=== PATIENT | male | born 1945 | race Caucasian/White ===

== ENCOUNTER 2019-01-20 05:10 | Day surgery (SDC) ==
[2019-01-13 09:54] LABS: HEMATOCRIT 39.4 % (42.0-52.0); HEMOGLOBIN 13.7 g/dL (14.0-18.0); MCH 30.7 PG (27-31); MCHC 34.8 g/dL (33-37); MCV 88.3 FL (81-99); MPV 11.1 FL (7.4-10.4); RBC 4.46 XMIL (4.7-6.1); RDW 13.8 % (11.5-14.5); WBC 5.95 X1000 (4.8-10.8)
[2019-01-13 10:05] LABS: INR 1.03; PROTIME 13.6 Seconds (11.0-16.0)
[2019-01-13 10:08] LABS: PTT 29.4 Seconds (22.3-41.8)
[2019-01-13 10:31] LABS: AGAP 11; BUN 18 mg/dL (8-22); CALCIUM 9.2 mg/dL (8.8-10.2); CHLORIDE 104 mmol/L (98-107); COSMO 287; ESTIMATED GFR > 60; GLUCOSE 95 mg/dL (70-104); POTASSIUM 4.3 mmol/L (3.5-5.1); SODIUM 143 mmol/L (136-145); TCO2 28 mmol/L (25-35)
--- NOTE | 2019-01-19 17:55 | HISTORY AND PHYSICAL ---
HISTORY OF PRESENT ILLNESS: A 73-year-old male with elevated PSA and clinical stage T1c Rosalina 6 prostate adenocarcinoma. His PSA was up to 3.83. He underwent prostate biopsy on 11/25/2018. Volume was 30 cubic cm. Unfortunately, pathology revealed [place] 6 prostate adenocarcinoma in 2/12 cores. 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 He feels strongly about surgical intervention. PAST MEDICAL HISTORY: Hyperlipidemia, hypertension, prostate cancer. PAST SURGICAL HISTORY: None. HOME MEDICATIONS: Pravastatin. Amlodipine. Losartan. ALLERGIES: No known drug allergies. FAMILY HISTORY: Positive for hypertension, stroke and diabetes. SOCIAL HISTORY: Denies tobacco use, alcohol or illicit drug use. PHYSICAL EXAMINATION: GENERAL: No acute distress. HEENT: Normocephalic, atraumatic. CARDIOVASCULAR: Regular rate and rhythm. PULMONARY: Bilateral breath sounds. ABDOMEN: Nontender, nondistended. GENITOURINARY: Bladder nontender by palpation. ASSESSMENT AND PLAN: A 73-year-old male with [place] 6 prostatic carcinoma who desires surgical intervention. We discussed robotic-assisted laparoscopic prostatectomy with laparoscopic urethral suspension. With the risks of the procedure including, but not limited to, bleeding, infection, injury to the bladder, injury to adjacent structures, inability to remove all of the cancer, long- term chance of urinary incontinence, and permanent erectile dysfunction were discussed as well as the need for additional interventions in the future. He voiced understanding and wants to proceed. PLAN: Robotic-assisted laparoscopic prostatectomy with urethral suspension. cc: Bruce Romero MD
[2019-01-20] MEDS ORDERED: KEFZOL 1 GM/D5W 2 GM/100 ML IVPB ONE (05:55)
[2019-01-20] MEDS ORDERED: LR 1,000 ML ONE ×2 (05:55→06:28)
[2019-01-20] MEDS ORDERED: DIPRIVAN 1% ONE (06:04)
[2019-01-20] MEDS ORDERED: FENTANYL ONE (06:04)
[2019-01-20] MEDS ORDERED: SENSORCAINE 0.25%/EPI 1:200,000 ONE (06:28)
[2019-01-20] MEDS ORDERED: B & O 16A SUPP ONE (06:28)
[2019-01-20] MEDS ORDERED: OFIRMEV 1000 MG/ISOTONIC SOLN 1,000 MG/100 ML BOTTLE ONE (07:19)
[2019-01-20] MEDS ORDERED: XYLOCAINE-MPF 2% ONE (07:35)
[2019-01-20] MEDS ORDERED: NEOSTIGMINE ONE (07:35)
[2019-01-20] MEDS ORDERED: ZEMURON ONE (07:35)
[2019-01-20] MEDS ORDERED: QUELICIN (DOSE) ONE (07:35)
[2019-01-20] MEDS ORDERED: ROBINUL ONE (07:35)
[2019-01-20] MEDS ORDERED: DECADRON ONE (07:35)
[2019-01-20] MEDS ORDERED: ZOFRAN ONE (07:35)
[2019-01-20 07:43] LABS: URINE SOURCE CATH
[2019-01-20 07:52] LABS: BILIRUBIN URINE NEGATIVE (NEGATIVE); BLOOD URINE NEGATIVE (NEGATIVE); COLOR STRAW; GLUCOSE URINE NEGATIVE (NEGATIVE); KETONE URINE NEGATIVE (NEGATIVE); LEUKOCYTES URINE NEGATIVE (NEGATIVE); NITRITE URINE NEGATIVE (NEGATIVE); PROTEIN URINE NEGATIVE (NEGATIVE); SP GRAVITY URINE 1.008; TURBIDITY URINE CLEAR (CLEAR); UROBILINOGEN URINE NORMAL (NORMAL)
[2019-01-20 07:54] LABS: UR EPITHELIAL CELLS <10 /HPF (<10); URINE BACTERIA NEGATIVE /HPF; URINE RBC <10 /HPF (<10); URINE WBC <10 /HPF (<10)
[2019-01-20] MEDS ORDERED: D5 1/2 NS 1,000 ML ONE (09:27)
[2019-01-20] MEDS: DEMEROL ONE (09:46)
[2019-01-20] MEDS ORDERED: MORPHINE IV PRN (10:41)
[2019-01-20] MEDS ORDERED: PHENERGAN PO PRN (10:45)
[2019-01-20] MEDS ORDERED: DITROPAN PO PRN (10:45)
[2019-01-20] MEDS ORDERED: LABETALOL IV PRN (10:45)
[2019-01-20] MEDS ORDERED: PHENERGAN IV PRN (10:45)
[2019-01-20] MEDS ORDERED: PHENERGAN PR PRN (10:45)
[2019-01-20] MEDS ORDERED: ZOFRAN IV PRN (10:45)
[2019-01-20] MEDS ORDERED: NORCO-10 PO PRN (10:45)
[2019-01-20] MEDS ORDERED: NORCO-7.5 PO PRN (10:45)
[2019-01-20] MEDS ORDERED: DILAUDID IV PRN (10:45)
[2019-01-20] MEDS ORDERED: BENADRYL LIQUID PO PRN (10:45)
[2019-01-20] MEDS ORDERED: B & O 15A SUPP PR PRN (10:45)
[2019-01-20] MEDS ORDERED: OFIRMEV 1000 MG/ISOTONIC SOLN 1,000 MG/100 ML BOTTLE IV PRN (10:45)
[2019-01-20] MEDS ORDERED: NORCO-5 PO PRN (10:45)
[2019-01-20] MEDS ORDERED: BENADRYL IV PRN (10:45)
--- NOTE | 2019-01-20 10:57 | OPERATIVE NOTE ---
PROCEDURE DATE: 01/20/2019 SURGEON: Dr. Bruce Romero. PREOPERATIVE DIAGNOSES: 1. Rising prostate-specific antigen. 2. Prostate cancer. 3. History of laparoscopic abdominal surgery. POSTOPERATIVE DIAGNOSES: 1. Rising prostate-specific antigen. 2. Prostate cancer. 3. History of laparoscopic abdominal surgery. 4. Adhesions of small bowel and mesentery to the anterior abdominal wall as well as pelvic sidewall. PROCEDURE NAME: Laparoscopic lysis of adhesions, robotic-assisted laparoscopic prostatectomy with laparoscopic urethral suspension. INDICATIONS: This is a 73-year-old male with a history of rising PSA who underwent prostate biopsy revealing Rosalina 6 multifocal prostate adenocarcinoma. He feels strongly about surgical intervention. He has recently had a robotic inguinal hernia repair bilaterally. FINDINGS: There were extensive adhesions of small bowel and mesentery to anterior abdominal wall, precluding me from being able to place one my trocars, 8 mm trocar, as well as the left pelvic sidewall. Please note that I spent approximately 20 minutes taking down the adhesions which increased my operative time by 30%. Watertight vesicourethral anastomosis at 240 mL tested at the conclusion of the case. Bilateral nerve-sparing was performed. DESCRIPTION OF PROCEDURE: After obtaining informed consent, the patient was brought to the operating room. Perioperative antibiotics and general endotracheal anesthesia were administered. He was placed in the lithotomy position, prepped and draped in a sterile fashion. An 18-Jordanian Horne catheter was introduced and his bladder was drained. A small stab incision was then made in the umbilicus, followed by introduction of a Veress needle connected to a saline-filled syringe. Positive drop test was confirmed, followed by aspiration of fluid in the syringe without evidence of GI contents or blood. This was then followed by insufflation of his pneumoperitoneal cavity to 15 mmHg. The trocar sites were made in a standard prostatectomy setup. Next, 10 mL of 0.25% Marcaine with epinephrine were used to anesthetize the trocar sites. We made an incision with Bovie electrocautery supraumbilically and introduced a 12 mm trocar. This was followed by insertion of the robotic camera. The peritoneal cavity was inspected and there were adhesions of small bowel in the right lower quadrant where my 8 mm trocar would go, as well as extensive adhesions of mesentery and small bowel to the left pelvic sidewall overlying the iliac area. I was able to place all the other trocars under direct vision. We then moved our trocar position in the right lower quadrant approximately 3 cm away in a cephalad fashion. This allowed us to introduce the trocar just a few millimeters away from the adhesions. Following that, he was placed in a steep Trendelenburg position. The robot was docked. I began by taking time to free his abdominal wall from the adhesions given the proximity to the trocar. We meticulously took down the adhesions sharply, avoiding electrocautery. I then took the adhesions down on the pelvic sidewall that were quite extensive with the bowel coming up just to the sutures securing the mesh in place. Again, I was able to avoid incising the mesh or excising any pieces of it. We eventually took down the adhesions and, again, it took me approximately 20 minutes to take them down. We then made an incision in the perineum approximately 3 cm above the rectum and isolated, dissected, and transected the right vas deferens, followed by identification, isolation, and dissection of the right seminal vesicle. Judicious electrocautery was used posterolaterally in order to avoid damage to the neurovascular bundles. The same thing was done on the left with the vas deferens and seminal vesicles. We then dissected anterior to the vas deferens to the level of the prostate and posterior to the seminal vesicles by incising Denonvilliers' fascia and developing a perirectal plane. Attention was then turned to taking down the bladder. We incised lateral to medial umbilical ligaments bilaterally. On his left side, again, the sutures from the mesh placement came very close to the medial umbilical ligament which made it difficult to dissect but eventually, I was able to free the bladder and develop a space of Retzius. We cleared the fat off of endopelvic fascia. The fascia itself was sharply incised and followed along the contour of the prostate. Puboprostatic ligaments were divided sharply. The superficial dorsal venous complex was secured with bipolar electrocautery. Deep dorsal venous complex was secured with a 0 V-Loc suture in a [id number] fashion with periosteal elevation. Following that, we turned our attention to developing the bladder neck. We identified the area of the bladder neck by gentle tugging on the Horne balloon. He had a fairly wide prostate that was also short. Monopolar cautery was used to incise the area of the bladder neck until the Horne catheter came into the view. We then incised the bladder neck circumferentially and lifted it on anterior traction with the assistance of the fourth arm. Eventually, the plane was developed between the prostate and the bladder, allowing us to find and bring out the vas deferens and seminal vesicles. Those were brought out into the field and placed on anterior traction with the help of the fourth arm. We then performed intrafascial dissection on either side of the prostate laterally, allowing us to spare the nerves, followed by reflection of neurovascular bundles with the use of Hem-O-Evan clips. We used cautery on the left side once, given a small pumping vessel. Following that, the prostatic apex was sharply divided. Given his pathology did not show any disease at the apex, we performed maximal urethral sparing technique by isolating approximately 2 cm stump of the prostatic urethra. It was divided sharply and then the prostate was placed into an EndoCatch bag. We inspected the wound for hemostasis and it was excellent. We decreased pneumoperitoneal pressure to 3 mmHg without evidence of active bleeding. Attention was then turned to reapproximating the perivesical and periurethral fascia with 3-0 V- Loc suture in a running fashion x2 on the left side and x2 on the right side. We saved those sutures for future laparoscopic suspension. We then performed vesicourethral anastomosis with another 3-0 V-Loc suture running in a clockwise and counterclockwise fashion, and then cross-tying the sutures. Following that, a fresh 18-Jordanian Horne catheter was introduced and the anastomosis was tested with 240 mL of sterile fluid. There was no evidence of an anastomotic leak. We decreased the pneumoperitoneal pressure to 3 mmHg once again and there was no evidence of bleeding. We then performed a laparoscopic ureteral suspension by placing the previously used Raciel sutures through the periosteum just lateral to the midline pubis and suspended the urethra. Once that was done, we one last time decreased pneumoperitoneal pressure to 3 mmHg without evidence of bleeding. The robot was undocked. The supraumbilical incision was extended, prostate was delivered, and the wounds were copiously irrigated. We closed the supraumbilical fascial defect with a running #1 PDS suture. The 12 mm speech correction assistant trocar fascia was closed with a figure- of-eight 0 Vicryl suture. Wounds were irrigated again. Then 4-0 Monocryl was used for subcuticular closure. Covidien adhesive agent was applied. He was extubated and taken to the PACU for further recovery. ESTIMATED BLOOD LOSS: 50 mL. COMPLICATIONS: None. DRAINS: An 18-Jordanian Horne catheter. SPECIMENS: One labeled as prostate. DISPOSITION: To PACU and subsequently the floor for observation with Horne catheter to gravity drainage. cc: Bruce Romero MD
[2019-01-20] MEDS: KEFZOL 2 GM/D5W 2 GM/50 ML IVPB IV SCH ×2 (14:27→21:36)
[2019-01-20] MEDS: D5 1/2 NS 1,000 ML IV SCH ×2 (14:27→21:37)
[2019-01-20] MEDS: TORADOL IV SCH ×2 (14:27→21:35)
[2019-01-20] MEDS ORDERED: PEPCID PO SCH (21:00)
[2019-01-20] MEDS ORDERED: PRAVACHOL PO SCH (21:00)
[2019-01-20] MEDS ORDERED: NORVASC PO SCH (21:00)
[2019-01-20] MEDS: PERIDEX MT SCH (21:35)
[2019-01-20] MEDS: COLACE PO SCH (21:36)
[2019-01-21] MEDS: TORADOL IV SCH ×2 (02:44→08:54)
[2019-01-21] MEDS: KEFZOL 2 GM/D5W 2 GM/50 ML IVPB IV SCH (05:22)
[2019-01-21 06:28] LABS: HEMATOCRIT 34.9 % (42.0-52.0); HEMOGLOBIN 12.3 g/dL (14.0-18.0); MCH 31.4 PG (27-31); MCHC 35.2 g/dL (33-37); MPV 11.5 FL (7.4-10.4); RBC 3.92 XMIL (4.7-6.1); RDW 13.7 % (11.5-14.5); WBC 11.74 X1000 (4.8-10.8)
[2019-01-21] MEDS: D5 1/2 NS 1,000 ML IV SCH (06:29)
[2019-01-21 06:46] LABS: CALCIUM 8.4 mg/dL (8.8-10.2); CREATININE 1.2 mg/dL (0.7-1.2); POTASSIUM 3.6 mmol/L (3.5-5.1)
[2019-01-21] MEDS: DEMEROL ONE (08:21)
[2019-01-21] MEDS: PERIDEX MT SCH (08:54)
[2019-01-21] MEDS: COLACE PO SCH (08:54)
[2019-01-21] MEDS ORDERED: COZAAR PO SCH (09:00)
--- NOTE | 2019-01-21 10:27 | PROGRESS NOTE ---
DATE: 01/21/2019 SUBJECTIVE: Mr. Ovalle reports a decent night overnight. He denies significant pain. He denies nausea or vomiting. OBJECTIVE: Vital Signs: T 97.9 degrees, P 60, BP 121/69. Output: His urine output was recorded in the amount of 3090 mL. General: No acute distress. Abdomen: Appropriately tender. Nondistended. Incisions are clean, dry, and intact. Genitourinary: Horne catheter in place, draining straw-colored urine. PERTINENT DIAGNOSTIC STUDIES: White cell count of 12,000, hematocrit is 35. Creatinine is 1.2. ASSESSMENT: A 73-year-old male, postoperative day 1, status post laparoscopic lysis of adhesions, robotic-assisted laparoscopic prostatectomy, and laparoscopic urethral suspension. He is doing well. He was educated in postoperative care. PLAN: 1. Discharge home with leg bag and large bag. 2. He will go home with prescriptions for [place] 7.5 (10), Keflex 250 b.i.d. (#6), and Ditropan 5 mg t.i.d. (#15). 3. He will come back to clinic on 01/25/2019 to have his Horne catheter removed. cc: Bruce Romero MD
[2019-01-21 11:17] VITALS: BP 113/67
== END 2019-01-21 12:01 | disposition home or self-care (01) ==
LOC: OR 05:10 → 4N 05:10 → OR 01-21 12:01
PROVIDERS: ATTEND Urology